=== PATIENT | male | born 1975 ===

== ENCOUNTER 2017-02-14 17:07 | Emergency (ER) | payer BC ==
[2017-02-14] MEDS ORDERED: Ketorolac Tromethamine 60 MG/2 ML VIAL ONE (17:18)
[2017-02-14] MEDS ORDERED: Ondansetron ODT 4 MG TAB ONE (17:18)
--- NOTE | 2017-02-14 20:09 | RAD ---
THREE VIEWS RIGHT SHOULDER 02/14/17 HISTORY: Pain post trauma. AP internally, externally and scapular Y-views right shoulder obtained. Images demonstrate superior migration of the clavicle with widening of the acromioclavicular and cor acoclavicular spaces. This is concerning for AC joint and coracoclavicular ligamentous rupture tiarra tible with a grade III right AC joint separation. No evidence of fractures seen. IMPRESSION: Findings compatible with grade III right AC joint separation. POS: NEGRITO
== END 2017-02-14 18:02 | disposition home or self-care (01) ==
LOC: BURERS 17:07
DX: S43.101A Unspecified dislocation of right acromioclavicular joint, initial encounter (principal); X58.XXXA Exposure to other specified factors, initial encounter; Y93.64 Activity, baseball
CPT/HCPCS: 96372; J1170; J1885; Q0162